=== PATIENT | male | born 1980 | race Caucasian/White ===

== ENCOUNTER 2019-09-16 14:26 | Emergency (ER) | payer OTHER ==
[~2019-09-16] VITALS: Ht 175.3 cm; Wt 74.8 kg
[2019-09-16] MEDS ORDERED: LEXAPRO 10 MG T10 M2 PO (15:14)
[2019-09-16] MEDS ORDERED: MINIPRESS2 MG PO (15:14)
[2019-09-16] MEDS ORDERED: VALIUM5 MG PO (16:38)
[2019-09-16 16:41] VITALS: BP 112/62
== END 2019-09-16 16:41 | disposition home or self-care (01) ==
LOC: ER 14:26
DX: S39.012A Strain of muscle, fascia and tendon of lower back, initial encounter (principal); M54.12 Radiculopathy, cervical region; V89.2XXA Person injured in unspecified motor-vehicle accident, traffic, initial encounter; Y93.89 Activity, other specified; Y92.89 Other specified places as the place of occurrence of the external cause; Y99.8 Other external cause status

== ENCOUNTER 2021-04-18 05:54 | Emergency (ER) | payer OTHER ==
[~2021-04-18] VITALS: Ht 175.3 cm; Wt 62.6 kg
[~2021-04-18 05:54] MED LIST: LEXAPRO 10 MG T10 M2 PO; MINIPRESS2 MG PO; VALIUM5 MG PO
[2021-04-18 05:58] VITALS: BP 134/70
[2021-04-18] MEDS ORDERED: HYDROCODON-ACE1 EAC7 PO (06:26)
== END 2021-04-18 06:50 | disposition home or self-care (01) ==
LOC: ER 05:54
DX: S60.042A Contusion of left ring finger without damage to nail, initial encounter (principal); F41.9 Anxiety disorder, unspecified; Z79.899 Other long term (current) drug therapy; W04.XXXA Fall while being carried or supported by other persons, initial encounter; Y93.89 Activity, other specified; Y92.89 Other specified places as the place of occurrence of the external cause; Y99.8 Other external cause status